=== PATIENT | female | born 1960 | race Two or more races ===

== ENCOUNTER → 2017-05-20 | Outpatient (CLI) | payer OTHER ==
[~2017-05-20] MED LIST: ATOR40TA68 PO; LOSA100T47 PO; LOSA1TAB9 PO; MECL25TA2 PO; METO25TA7 PO; PRAV20TA63 PO
--- NOTE | 2017-05-20 14:12 | RADRPT ---
PROCEDURE: XR Right hip and pelvis. CLINICAL INDICATION: Right hip pain and pelvic pain. TECHNIQUE: 3 views. Frontal pelvis. Frontal and lateral right hip. COMPARISON: None. FINDINGS: There is no fracture or dislocation. The soft tissues are normal. There are degenerative changes of the right hip with joint space narrowing, osteophytes, subarticula r sclerosis, subarticular cysts, and deformity. There is a left hip total arthroplasty. A single s crews transfixing the superior lateral left acetabulum. There is no lytic or blastic lesion. There are degenerative changes of the lower lumbar spine. IMPRESSION: 1. Severe degenerative changes of the right. 2. Left hip total arthroplasty. RPTAT: QQ .Torres Reza MD, MD Date Time Electronically viewed and signed by .Torres Reza MD, on 05/20/2017 14:11 .R/
== END | disposition home or self-care (01) ==
LOC: HKI 08:52
PROVIDERS: ATTEND Orthopaedic Surgery
DX: M16.11 Unilateral primary osteoarthritis, right hip (principal); Z96.642 Presence of left artificial hip joint; M51.36 Other intervertebral disc degeneration, lumbar region; I10 Essential (primary) hypertension; E78.00 Pure hypercholesterolemia, unspecified; Z90.710 Acquired absence of both cervix and uterus
CPT/HCPCS: 73502

== ENCOUNTER → 2017-07-01 | Outpatient (CLI) | payer OTHER ==
[~2017-07-01] MED LIST changes: +ASPI81TA3 PO; +MELO-110 PO
== END | disposition home or self-care (01) ==
LOC: HKI 10:28
PROVIDERS: ATTEND Orthopaedic Surgery
DX: M25.551 Pain in right hip (principal); M16.11 Unilateral primary osteoarthritis, right hip; Z96.642 Presence of left artificial hip joint
CPT/HCPCS: G0463

== ENCOUNTER 2017-07-07 05:36 | Inpatient (IN) | payer OTHER ==
[2017-07-07] VITALS (22 sets, daily range): BP systolic 107–146; BP diastolic 66–87; PULSE 77–92; RESP 14–63; Ht 154.9 cm; Wt 83.5 kg
[~2017-07-07] VITALS: Ht 154.9 cm; Wt 83.5 kg
[~2017-07-07 05:36] MED LIST changes: -ASPI81TA3 PO; -MELO-110 PO
[2017-07-07] MEDS: LACTATED RINGER'S 1,000 ML IV SCH ×4 (06:13→18:08)
[2017-07-07] MEDS ORDERED: BACITRACIN 50000 UNITS INJ ONE (06:41)
[2017-07-07] MEDS ORDERED: PREGABALIN 300 MG PO X1 PO ONE (07:00)
[2017-07-07] MEDS ORDERED: TRANEXAMIC ACID 820 MG in SOD CHLORIDE 0.9% 100 ML IVPB ONE (07:00)
[2017-07-07] MEDS ORDERED: TRANEXAMIC ACID IV ONE (07:00)
[2017-07-07] MEDS ORDERED: oxyCODONE (CR) 10 MG TAB [oxyCONTIN] X1 DOSE PO ONE (07:00)
[2017-07-07] MEDS ORDERED: BUPIVACAINE LIPOSOME/PF 266 MG/20 ML VIAL INFIL ONE (07:00)
[2017-07-07] MEDS ORDERED: CELECOXIB 400 MG PO X1 DOSE PO ONE (07:00)
[2017-07-07] MEDS ORDERED: PAIN COCKTAIL-CEFUROXIME IRR ONE ×7 (07:00)
[2017-07-07] MEDS ORDERED: CEFAZOLIN 2GM/50 ML (PMX) 50 ML X1 BEFORE INCISION IVPB ONE (07:00)
[2017-07-07] MEDS ORDERED: traMADOL 50 MG TAB X 1 DOSE PO ONE (07:00)
[2017-07-07] MEDS ORDERED: ON CALL TO OR IV ONE (07:00)
[2017-07-07] MEDS ORDERED: ONDANSETRON 4 MG IV X 1 DOSE IV ONE (07:00)
[2017-07-07] MEDS ORDERED: VANCOMYCIN 1 GM INJ ONE (07:04)
[2017-07-07] MEDS ORDERED: HEPARIN 1000 UNITS/ML 10 ML INJ ONE (07:04)
[2017-07-07] MEDS ORDERED: POLYMYXIN B 500000 UNIT INJ ONE (07:04)
[2017-07-07] MEDS ORDERED: SODIUM CL BACTERIOSTATIC 30 ML INJ ONE (07:04)
[2017-07-07] MEDS ORDERED: GLYCOPYRROLATE 0.4 MG INJ ONE (07:07)
[2017-07-07] MEDS ORDERED: NEOSTIGMINE 3 MG/3 ML SYRINGE ONE (07:07)
[2017-07-07] MEDS ORDERED: ROCURONIUM 50 MG INJ ONE (07:07)
[2017-07-07] MEDS ORDERED: MIDAZOLAM 1 MG/ML 2 ML INJ ONE (07:07)
[2017-07-07] MEDS ORDERED: FENTAnyl 50 MCG/ML VIAL ONE (07:07)
[2017-07-07] MEDS ORDERED: PROPOFOL 20 ML ONE (07:07)
[2017-07-07] MEDS ORDERED: ONDANSETRON 4 MG INJ ONE (07:07)
[2017-07-07] MEDS ORDERED: CEFAZOLIN 1 GM INJ ONE (07:07)
[2017-07-07] MEDS ORDERED: MELO-110 PO (07:08)
[2017-07-07] MEDS ORDERED: ASPI81TA3 PO (07:08)
[2017-07-07] MEDS ORDERED: DEXAMETHASONE 4 MG/ML 1 ML INJ ONE (07:08)
--- NOTE | 2017-07-07 07:18 | HPN ---
Date/Time of Note Date/Time of Note DATE: 07/07/17 TIME: 07:16 Interval H&P Admission Note Pt. seen H&P reviewed: No system changes No changes from H&P on 06/24/17 by SENTHIL Meyers MD Jul 07, 2017 07:17
[2017-07-07] MEDS ORDERED: PROPOFOL 100 ML ONE (08:11)
[2017-07-07] MEDS ORDERED: ETOMIDATE 20 MG INJ ONE (08:11)
[2017-07-07] MEDS ORDERED: MEPERIDINE 25 MG INJ IV PRN (08:30)
[2017-07-07] MEDS ORDERED: TRIMETHOBENZAMIDE 100 MG/ML VIAL IM PRN (08:30)
[2017-07-07] MEDS ORDERED: HYDROmorphONE (0.2 MG/ML) 10ML SYG IV PRN ×3 (08:30)
[2017-07-07] MEDS ORDERED: IPRATROPIUM (NEB) 0.5 MG/2.5 ML AMP HHN PRN (08:30)
[2017-07-07] MEDS ORDERED: DIPHENHYDRAMINE 50 MG INJ IV PRN (08:30)
[2017-07-07] MEDS ORDERED: hydrALAzine 20 MG INJ IV PRN (08:30)
[2017-07-07] MEDS ORDERED: OXYCODONE/ACETAMINOPHEN (5/325) TAB PO PRN ×2 (08:30)
[2017-07-07] MEDS ORDERED: MIDAZOLAM 1 MG/ML 2 ML INJ IV PRN (08:30)
[2017-07-07] MEDS ORDERED: LABETALOL HCL 20MG INJ IV PRN (08:30)
[2017-07-07] MEDS ORDERED: FENTAnyl 50 MCG/ML VIAL IV PRN ×3 (08:30)
[2017-07-07] MEDS ORDERED: EPHEDrine SULFATE 50 MG/5 ML SYG IV PRN (08:30)
[2017-07-07] MEDS ORDERED: ONDANSETRON 4 MG INJ IV PRN ×2 (08:30→10:30)
[2017-07-07] MEDS ORDERED: ALBUTEROL 0.083% (NEB) 2.5 MG/3 ML AMP HHN PRN (08:30)
[2017-07-07] MEDS ORDERED: EXPAREL NOTE (BUPIVICAINE LIPOSOMAL) XX SCH (09:00)
[2017-07-07] MEDS ORDERED: SUGAMMADEX SODIUM 200 MG/2 ML VIAL IV ONE (09:57)
--- NOTE | 2017-07-07 10:29 | PN ---
Date/Time of Note Date/Time of Note DATE: 07/07/17 TIME: 10:27 Assessment/Plan Lines/Catheters IV Catheter Type (from Nrsg): Peripheral IV Assessment/Plan Assessment/Plan Stable in PACU, s/p right anterior RAJIV -continue Ancef -pain meds as needed -ASA/SCDs -OOB with PT -check AM labs -monitor drain -d/c de leon in AM XR of the right hip is pending at this time Subjective 24 Hr Interval Summary Stable in PACU. Denies pain. Moving all extremities. Exam/Review of Systems Vital Signs Vitals Vital Signs Date Time Temp Pulse Resp B/P Pulse Ox O2 Delivery O2 Flow Rate FiO2 07/07/17 10:12 97.9 90 14 123/72 100 Nasal Cannula 2.0 Exam Free Text/Dictation Hemovac: minimal Dressing dry Incision clean, dry, and intact without redness or drainage Thigh soft 5/5 Quadriceps, Tibialis Anterior, EHL, Gastroc, Soleus, Peroneals Normal sensation Palpable DT/PT, CR <2 sec No distal edema RAJANI NEWBY PA-C Jul 07, 2017 10:29
[2017-07-07] MEDS ORDERED: NA PHOSPHATE/BIPHOS 133 ML ENEMA PR PRN (10:30)
[2017-07-07] MEDS ORDERED: NACL 0.9% 3 ML SYG IV SCH (10:30)
[2017-07-07] MEDS ORDERED: HYDROCODONE/APAP (5/325) TAB PO PRN (10:30)
[2017-07-07] MEDS ORDERED: MAGNESIUM HYDROXIDE 30ML CUP PO PRN (10:30)
[2017-07-07] MEDS ORDERED: BISACODYL 10 MG SUPP PR PRN (10:30)
[2017-07-07] MEDS ORDERED: HYDROmorphONE 1 MG/ML SYG IV PRN (10:30)
[2017-07-07] MEDS ORDERED: DIPHENHYDRAMINE 25 MG CAP PO PRN (10:30)
[2017-07-07] MEDS ORDERED: ASPIRIN (EC) 325 MG TAB PO ONE (10:30)
--- NOTE | 2017-07-07 10:34 | OPR ---
Date/Time of Note Date/Time of Note DATE: 07/07/17 TIME: 10:31 Operative Report Procedure Description DATE: 07/07/2017 PREOPERATIVE DIAGNOSIS: Right hip osteoarthritis POSTOPERATIVE DIAGNOSIS: Right hip osteoarthritis OPERATION PERFORMED: Right anterior total hip arthroplasty SURGEON: Senthil Escalona MD EDUCATIONAL SPEECH LANGUAGE CLINICIAN: Mata Prather PA-C COMPONENTS USED: DePuy size 48 mm Gription [place] cup, one 6.5 millimeter screw, 48/32 neutral Altrex polyethylene liner, size 3 standard Actis stem, 32+ 1 ceramic head ANESTHESIA: Spinal plus general endotracheal intubation. ANESTHESIOLOGIST: Kavin Mallory M.D. ESTIMATED BLOOD LOSS: 400 cc INTRAVENOUS FLUIDS: Crystalloid 3000 cc crystalloid and 150 cc of autologous Cell Saver blood. SPECIMENS: Femoral head. DRAINS: Hemovac 1 COMPLICATIONS: None. DISPOSITION: The patient tolerated the procedure well and was taken to the recovery room in stable condition. INDICATIONS: The patient is a 56-year-old woman who has had progressively worsening pain in the right hip with radiographic evidence of severe osteoarthritis. She has failed nonsurgical means of treatment to address her pain including activity modifications, pain medications, and ambulatory assist devices. I felt the patient would benefit from a total hip arthroplasty through an anterior approach. The risks, benefits, and alternatives of the procedure were explained in detail to the patient. I explained the risks of the surgery to include, but not be limited to: bleeding and possible need for blood transfusion; infection; pain; stiffness; neurovascular injury with possible numbness, weakness, and/or paralysis anywhere from the hip down to the toes; fracture; instability; dislocation; leg length inequality; wear and/or loosening of the prosthesis and possible need for future revision; blood clots; pulmonary embolism; and anesthetic complications such as heart attack, stroke, GI bleed, pneumonia, and/ or . Ample time was allowed for the patient to ask questions, all of which were addressed and answered. The patient understood the risks involved and wished to proceed. Informed consent was signed prior to the procedure. PROCEDURE: The patient's right hip was initialed with a marking pen in the preoperative area to identify the correct operative site. The patient was brought to the operating room and transferred from the [facility] to the [facility] where a spinal anesthetic was administered. The patient was then anesthetized and intubated. A Murphy catheter was placed. Both feet were placed into well padded boots which were then placed into the leg holders of the traction booms. A timeout was performed to confirm that the right side was the correct operative site. The patient was given 2 g of intravenous Ancef within one hour prior to the procedure. The operative hip was prepped and draped in the usual sterile fashion. A 10 cm oblique incision was made over the anterior aspect of the hip and carried down through subcutaneous tissue and fat with sharp dissection. The tensor fascia laurel was incised along the length of the wound. The tensor fascia muscle was retracted laterally and the sartorius medially. The anterior circumflex vessels were identified and tied off with 2-0 silk suture and coagulated with the Tissue Link auto emissions technician. The rectus femoris was elevated off the anterior capsule and an anterior capsulectomy performed. A femoral neck osteotomy was made and the head removed from the acetabulum. The acetabulum was denuded of cartilage circumferentially, as was the femoral head. Retractors were placed around the acetabulum. The remnants of the labrum and ligamentum teres were excised. I reamed the acetabulum to the medial wall and then went into an anatomic position and increased the reamer size in 2 mm increments until I got a good bite and was down to bleeding subchondral bone. The [place] cup was opened and impacted into the acetabulum and sat flush circumferentially, getting a good bite. C-arm imaging showed it had about 40 to 45 degrees of abduction and 20 degrees of anteversion. A single 6.5 screw was drilled and filled to appropriate length, getting a good bite. The real liner was opened and impacted into the acetabulum and sat flush circumferentially. Attention was turned towards the femur. The operative leg was carefully lowered to the floor with the leg adducted. The foot was then externally rotated to approximately 110 degrees. A posteromedial release was performed to optimize exposure. The femoral hook was placed underneath the proximal femur and the hydraulic lift was then used to elevate the femur up out of the wound. The yohana cutter osteotome was used to remove the remaining overhanging greater trochanter. The femur was then broached, going up in one size increments until it sat flush with the neck cut and a stable fit was achieved. The trial neck and head were assembled and reduced into the acetabulum. Fluoroscopic imaging showed the components to be in good position and the leg lengths and offsets to be equal. At this point, the trial was dislocated and the trial broach removed. The canal was irrigated and dried. The real stem was opened and impacted into the femur. The trunnion was irrigated and dried, and the real femoral head was impacted onto the trunnion, and reduced into the acetabulum. The soft tissues were infiltrated with a mixture of 150 mg of 0.5% Bupivacaine, 8 mg of Duramorph, 300 mcg of epinephrine, 30 mg of Toradol, 100 mcg of clonidine, 750 mg of cefuroxime and 86 mL of normal saline, followed by an injection of 266 mg of liposomal Bupivacaine. At this point the hip was irrigated with a mixture of betadine/saline and then antibiotic saline with pulsatile lavage. A Hemovac drain was placed in the deep portion of the wound and brought out the anterolateral thigh. There was good hemostasis. The tensor fascia laurel was repaired with a running #1 Vicryl. The deep fat layer was irrigated and closed with 2-0 Stratafix and the subcutaneous layer closed with 3 -0 Vicryl and the skin was closed with vlad and then sealed with Dermabond. The drain was secured with 3-0 nylon. The sponge and needle counts were correct at the end of the case. The wound was covered with an occlusive dressing. The patient was awakened, extubated, and taken to the recovery room in stable condition. SENTHIL ESCALONA MD Jul 07, 2017 10:34
[2017-07-07] MEDS: CEFAZOLIN 2 GM/50 ML (PMX) 50 ML IVPB SCH ×2 (10:35→18:08)
--- NOTE | 2017-07-07 10:42 | RADRPT ---
PROCEDURE: X-ray fluoroscopy guidance CLINICAL INDICATION: RT ANT. HIP REPL. RM 7 O.R. TECHNIQUE: Fluoroscopic guidance was utilized for intraoperative procedure. COMPARISON: None. FINDINGS: Fluoroscopic guidance was utilized for intraoperative procedure. 1.4 minutes of fluoroscopy time wa s utilized for the procedure. 14 x-ray images were obtained during the procedure. There has been placement of a right total hip prosthesis in near anatomic alignment. A total left hip prosthesis in near anatomic alignment is also noted. IMPRESSION: X-ray fluoroscopic guidance utilized for intraoperative procedure. Placement of a total right hip prosthesis in near anatomic alignment. Please see procedure note details. RPTAT: EE Physician Manpreet Date Time Electronically viewed and signed by Physician Manpreet on 07/07/2017 10:41 /
[2017-07-07 10:55] LABS: HEMATOCRIT 35.7 % (37.0-47.0); HEMOGLOBIN 12.1 g/dl (12.0-16.0)
--- NOTE | 2017-07-07 11:10 | RADRPT ---
PROCEDURE: XR Hip. CLINICAL INDICATION: Status post right hip prosthesis. Postop. Follow-up TECHNIQUE: Single AP view of the right hip was performed. COMPARISON: None. FINDINGS: Right hip prosthesis is identified. Alignment is anatomic. No fracture or loosening or hardware fa ilure is seen. Postsurgical changes are identified. Gas is seen within the joint space and surroun ding soft tissues, as expected. Overlapping soft tissue skin vlad are identified. There is a ranjeet gical drain in place within the soft tissues of the surgical bed as well. IMPRESSION: 1. Satisfactory postop appearances, status post right hip prosthesis placement, in anatomic alignme nt. RPTAT: PP .Boogie Truong MD, Date Time Electronically viewed and signed by .Boogie Truong MD, on 07/07/2017 11:10 .B/
[2017-07-07 11:27] LABS: CALCIUM 8.8 mg/dl (8.4-10.2); CREATININE 0.49 mg/dl (0.44-1.00)
[2017-07-07] MEDS: traMADol 50 MG TAB PO SCH ×2 (11:59→18:00)
--- NOTE | 2017-07-07 12:11 | RADRPT ---
PROCEDURE: Pelvis x-ray CLINICAL INDICATION: Postoperative TECHNIQUE: Single AP view of the pelvis performed. COMPARISON: None FINDINGS: Normal mineralization, architecture and alignment. No fracture or osseous lesion identified. There is a total left hip prosthesis in near anatomic alignment without evidence of hardware looseni ng. There is a total right hip prosthesis in near anatomic alignment without evidence of hardware loosen ing. Likely postoperative changes are noted including surrounding subcutaneous emphysema, overlying skin vlad, and a surgical drain. RPTAT: AA IMPRESSION: Right hip prosthesis in near anatomic alignment with likely postoperative changes. Left hip prosthesis in near anatomic alignment. Physician Manpreet Date Time Electronically viewed and signed by Physician Manpreet on 07/07/2017 12:11 /
[2017-07-07] MEDS ORDERED: TRANEXAMIC ACID 840 MG in SOD CHLORIDE 0.9% 100 ML IVPB ONE ×2 (13:30→16:30)
[2017-07-07] MEDS: PANTOPRAZOLE (EC) 40 MG TAB PO SCH (18:08)
--- NOTE | 2017-07-07 18:37 | CONS ---
Date/Time of Note Date/Time of Note DATE: 07/07/17 TIME: 18:33 Assessment/Plan Assessment/Plan Chief Complaint/Hosp Course 1. Osteoarthritis of the right hip status post total hip replacement postop day 0 Pain control Further management per orthopedics 2. Hypertension Resume home meds 3. Obesity Advise lifestyle changes Prophylaxis: Aspirin Problems: Consultation Date/Type/Reason Admit Date/Time Jul 07, 2017 at 05:36 Type of Consultation: Medicine Hx of Present Illness Patient is a 48-year-old female with history of obesity, hypertension and bilateral hip arthritis status post left-sided hip replacement many years ago and now comes in with elective right hip replacement. Patient has no complaints at this time and is currently comfortable. Constitutional: improved, no complaints Eyes: no complaints ENT: no complaints Respiratory: no complaints Cardiovascular: no complaints Gastrointestinal: no complaints Genitourinary: no complaints Musculoskeletal: no complaints Skin: no complaints Neurologic: no complaints Endocrine: no complaints Lymphatic: no complaints Psychological: nl mood/affect, no complaints Immunologic: no complaints Past Medical History Obesity, hypertension, osteoarthritis Past Surgical History Hysterectomy and bilateral hip replacement Family History Significant Family History: no pertinent family hx Social History Alcohol Use: none Smoking Status: Never smoker Drug Use: none Exam/Review of Systems Vital Signs Vitals Vital Signs Date Time Temp Pulse Resp B/P Pulse Ox O2 Delivery O2 Flow Rate FiO2 07/07/17 15:30 92 145/81 96 Nasal Cannula 1.0 07/07/17 11:45 97.7 07/07/17 11:12 17 Exam Constitutional: alert, oriented Head: normocephalic Respiratory: clear to auscultation Cardiovascular: regular rate and rhythm Gastrointestinal: soft, No distended Musculoskeletal: nl extremities to inspection Results Result Diagram: 07/07/17 1050 07/07/17 1050 Results 24 hrs Laboratory Tests Test 07/07/17 10:50 Hemoglobin 12.1 Hematocrit 35.7 L Sodium Level 144 Potassium Level 4.0 Chloride Level 104 Carbon Dioxide Level 26 Anion Gap 18 H Blood Urea Nitrogen 12 Creatinine 0.49 Glucose Level 173 Calcium Level 8.8 Medications Medications Current Medications Lactated Ringer's (Lr) 1,000 ml @ 100 mls/hr Q10H IV Last administered on 07/07t 16:53; Admin Dose 100 MLS/HR; Start 07/07/17 at 07:00 Miscellaneous Information 1 ea NOTE XX ; Start 07/07/17 at 09:00; Stop 07/11/17 at 08:59 Atorvastatin Calcium (Lipitor) 40 mg QHS PO ; Start 07/07/17 at 21:00 Losartan Potassium (Cozaar) 100 mg DAILY PO ; Start 07/08/17 at 09:00 Metoprolol Succinate (Toprol Xl) 25 mg BID PO ; Start 07/07/17 at 21:00 Hydrochlorothiazide 12.5 mg 12.5 mg DAILY PO ; Start 07/08/17 at 09:00 Lactated Ringer's (Lr) 1,000 ml @ 125 mls/hr Q8H IV ; Start 07/07/17 at 10:09 Tramadol HCl (Ultram) 50 mg Q6 PO ; Start 07/07/17 at 12:00; Stop 07/10/17 at 11 :59 Acetaminophen/ Hydrocodone Bitart ([place] (5/325)) 1 tab Q4H PRN PO PAIN LEVEL 1 -3; Start 07/07/17 at 10:30 Acetaminophen/ Hydrocodone Bitart ([place] (5/325)) 2 tab Q4H PRN PO PAIN LEVEL 4 -7; Start 07/07/17 at 10:30 Hydromorphone HCl 1 mg 1 mg Q3H PRN IV PAIN LEVEL 8-10; Start 07/07/17 at 10:30 Cefazolin Sodium/ Dextrose (Ancef 2 Gm/50 ml (Pmx)) 50 ml @ 100 mls/hr Q8H IVPB Last administered on 07/07/17t 18:08; Admin Dose 100 MLS/HR; Start at 10:30; Stop 07/08/17 at 02:59 Ondansetron HCl (Zofran Inj) 4 mg Q6H PRN IV NAUSEA AND/OR VOMITING; Start at 10:30 Bisacodyl (Dulcolax Supp) 10 mg Q12H PRN [place] CONSTIPATION; Start 07/07/17 at 10: 30 Magnesium Hydroxide (Milk Of Mag) 30 ml BID PRN PO CONSTIPATION; Start at 10:30 Sodium Biphosphate/ Sodium Phosphate (Fleet Enema) 133 ml DAILY PRN [place] CONSTIPATION; Start 07/07/17 at 10:30 Docusate Sodium (Colace) 100 mg BID PO ; Start 07/07/17 at 21:00 Diphenhydramine HCl (Benadryl) 25 mg Q6H PRN PO PRURITUS; Start 07/07/17 at 10: 30 Aspirin (Ecotrin) 325 mg BID PO ; Start 07/08/17 at 09:00 Pantoprazole (Protonix Tab) 40 mg BID@06,18 PO Last administered on 07/07/17t 18:08; Admin Dose 40 MG; Start 07/07/17 at 18:00 CHANDAN ZAMORA Jul 07, 2017 18:37
[2017-07-07] MEDS: DOCUSATE SODIUM 100 MG CAP PO SCH (21:07)
[2017-07-07] MEDS: ATORVASTATIN 40 MG TAB PO SCH (21:07)
[2017-07-07] MEDS: METOPROLOL (XL) 25 MG TAB PO SCH (21:08)
[2017-07-08] MEDS: traMADol 50 MG TAB PO SCH ×4 (00:28→17:22)
[2017-07-08] MEDS: LACTATED RINGER'S 1,000 ML IV SCH ×7 (02:00→23:00)
[2017-07-08] MEDS: CEFAZOLIN 2 GM/50 ML (PMX) 50 ML IVPB SCH (02:38)
[2017-07-08 02:48] VITALS: BP 108/64; RESP 18
[2017-07-08 05:41] LABS: HEMATOCRIT 30.5 % (37.0-47.0); HEMOGLOBIN 10.5 g/dl (12.0-16.0)
[2017-07-08 05:46] LABS: MAGNESIUM 1.8 mg/dl (1.7-2.5); PHOSPHORUS 3.8 mg/dl (2.5-4.9)
[2017-07-08 05:50] LABS: CALCIUM 8.8 mg/dl (8.4-10.2); CREATININE 0.56 mg/dl (0.44-1.00)
[2017-07-08] MEDS: PANTOPRAZOLE (EC) 40 MG TAB PO SCH ×2 (06:16→17:22)
[2017-07-08 08:00] VITALS: BP 108/61; RESP 16
[2017-07-08] MEDS: LOSARTAN 50 MG TAB PO SCH (08:22)
[2017-07-08] MEDS: DOCUSATE SODIUM 100 MG CAP PO SCH ×2 (08:22→20:42)
[2017-07-08] MEDS: ASPIRIN (EC) 325 MG TAB PO SCH ×2 (08:22→18:27)
[2017-07-08] MEDS: METOPROLOL (XL) 25 MG TAB PO SCH ×2 (08:23→20:43)
[2017-07-08] MEDS: HYDROCHLOROTHIAZIDE 12.5 MG CAP PO SCH (08:23)
--- NOTE | 2017-07-08 08:51 | PN ---
Date/Time of Note Date/Time of Note DATE: 07/08/17 TIME: 08:49 Assessment/Plan Lines/Catheters IV Catheter Type (from Nrsg): Peripheral IV Murphy in Place (from Nrsg): Yes Assessment/Plan Assessment/Plan Stable POD #1, s/p right anterior RAJIV -d/c Ancef -pain meds as needed -ASA/SCDs -OOB with PT -check AM labs -drain removed -d/c planning home Subjective 24 Hr Interval Summary No acute overnight events. Denies pain. Began PT yesterday. VSS, afebrile. Will plan to go home upon discharge. Exam/Review of Systems Vital Signs Vitals Vital Signs Date Time Temp Pulse Resp B/P Pulse Ox O2 Delivery O2 Flow Rate FiO2 07/08/17 08:00 98.5 86 16 108/61 94 07/07/17 20:00 Nasal Cannula 2.0 Intake and Output 07/07/17 07/07/17 07/08/17 15:00 23:00 07:00 Intake Total 3233.4 ml 1658.4 ml 472 ml Output Total 1430 ml 1420 ml 2700 ml Balance 1803.4 ml 238.4 ml -2228 ml Exam Free Text/Dictation Hemovac: 150cc Dressing dry Incision clean, dry, and intact without redness or drainage 5/5 Quadriceps, Tibialis Anterior, EHL, Gastroc, Soleus, Peroneals Normal sensation Palpable DT/PT, CR <2 sec No distal edema Results Result Diagram: 07/08/17 0503 07/08/17 0503 RAJANI NEWBY PA-C Jul 08, 2017 08:51
[2017-07-08] MEDS: HYDROCODONE/APAP (5/325) TAB PO PRN (09:12)
[2017-07-08 10:45] LABS: ADD UMIC NO; UR ASCORBIC ACID NEGATIVE (NEGATIVE); UR BILIRUBIN (Dip) NEGATIVE (NEGATIVE); UR BLOOD (Dip) NEGATIVE (NEGATIVE); UR CLARITY CLEAR (CLEAR); UR COLOR COLORLESS (YELLOW); UR GLUCOSE (Dip) NEGATIVE (NEGATIVE); UR KETONES (Dip) NEGATIVE (NEGATIVE); UR LEUKOCYTE ESTERASE (Dip) NEGATIVE Leu/ul (NEGATIVE); UR NITRITE (Dip) NEGATIVE (NEGATIVE); UR SPECIFIC GRAVITY (Dip) 1.002 (1.003-1.030); UR TOTAL PROTEIN (Dip) NEGATIVE (NEGATIVE); UR UROBILINOGEN (Dip) NEGATIVE (NEGATIVE)
[2017-07-08 14:00] VITALS: BP 113/66; RESP 18
--- NOTE | 2017-07-08 19:19 | PN ---
Date/Time of Note Date/Time of Note DATE: 07/08/17 TIME: 19:18 Assessment/Plan VTE Prophylaxis VTE Prophylaxis Intervention: other (Aspirin) Lines/Catheters IV Catheter Type (from Nrsg): Peripheral IV Assessment/Plan Chief Complaint/Hosp Course 1. Osteoarthritis of the right hip status post total hip replacement postop day 1-doing well Pain control Further management per orthopedics 2. Hypertension Resume home meds 3. Obesity Advise lifestyle changes 4. Prediabetes A1c is 6.2, lifestyle changes advised Prophylaxis: Aspirin Problems: Subjective 24 Hr Interval Summary Constitutional: no complaints Exam/Review of Systems Vital Signs Vitals Vital Signs Date Time Temp Pulse Resp B/P Pulse Ox O2 Delivery O2 Flow Rate FiO2 07/08/17 14:00 97.6 76 18 113/66 97 07/08/17 08:00 Nasal Cannula 1.0 Intake and Output 07/07/17 07/07/17 07/08/17 15:00 23:00 07:00 Intake Total 3233.4 ml 1658.4 ml 472 ml Output Total 1430 ml 1420 ml 2700 ml Balance 1803.4 ml 238.4 ml -2228 ml Exam Constitutional: alert, oriented Respiratory: clear to auscultation Cardiovascular: regular rate and rhythm Gastrointestinal: soft, No distended Musculoskeletal: nl extremities to inspection Results Result Diagram: 07/08/17 0503 07/08/17 0503 Results 24 hrs Laboratory Tests Test 07/08/17 05:03 Hemoglobin 10.5 L Hematocrit 30.5 L Sodium Level 137 Potassium Level 4.0 Chloride Level 103 Carbon Dioxide Level 28 Anion Gap 10 # Blood Urea Nitrogen 10 Creatinine 0.56 Glucose Level 108 # Hemoglobin A1c 6.2 H Calcium Level 8.8 Phosphorus Level 3.8 Magnesium Level 1.8 Medications Medications Current Medications Lactated Ringer's (Lr) 1,000 ml @ 100 mls/hr Q10H IV Last administered on 07/07 16:53; Admin Dose 100 MLS/HR; Start 07/07/17 at 07:00 Miscellaneous Information 1 ea NOTE XX ; Start 07/07/17 at 09:00; Stop 07/11/17 at 08:59 Atorvastatin Calcium (Lipitor) 40 mg QHS PO Last administered on 07/07/17 21: 07; Admin Dose 40 MG; Start 07/07/17 at 21:00 Losartan Potassium (Cozaar) 100 mg DAILY PO Last administered on 07/08/17 08: 22; Admin Dose 100 MG; Start 07/08/17 at 09:00 Metoprolol Succinate (Toprol Xl) 25 mg BID PO Last administered on 07/08/17 08 :23; Admin Dose 25 MG; Start 07/07/17 at 21:00 Hydrochlorothiazide 12.5 mg 12.5 mg DAILY PO Last administered on 07/08/17 08: 23; Admin Dose 12.5 MG; Start 07/08/17 at 09:00 Lactated Ringer's (Lr) 1,000 ml @ 125 mls/hr Q8H IV Last administered on 02:00; Admin Dose 125 MLS/HR; Start 07/07/17 at 10:09 Tramadol HCl (Ultram) 50 mg Q6 PO Last administered on 07/08/17 17:22; Admin Dose 50 MG; Start 07/07/17 at 12:00; Stop 07/10/17 at 11:59 Acetaminophen/ Hydrocodone Bitart ([place] (5/325)) 1 tab Q4H PRN PO PAIN LEVEL 1 -3 Last administered on 07/08/17 09:12; Admin Dose 1 TAB; Start 07/07/17 at 10: 30 Acetaminophen/ Hydrocodone Bitart ([place] (5/325)) 2 tab Q4H PRN PO PAIN LEVEL 4 -7; Start 07/07/17 at 10:30 Hydromorphone HCl (Dilaudid) 1 mg Q3H PRN IV PAIN LEVEL 8-10; Start 07/07/17 at 10:30 Ondansetron HCl (Zofran Inj) 4 mg Q6H PRN IV NAUSEA AND/OR VOMITING Last administered on 07/07/17 19:26; Admin Dose 4 MG; Start 07/07/17 at 10:30 Bisacodyl (Dulcolax Supp) 10 mg Q12H PRN [place] CONSTIPATION; Start 07/07/17 at 10: 30 Magnesium Hydroxide (Milk Of Mag) 30 ml BID PRN PO CONSTIPATION; Start at 10:30 Sodium Biphosphate/ Sodium Phosphate (Fleet Enema) 133 ml DAILY PRN [place] CONSTIPATION; Start 07/07/17 at 10:30 Docusate Sodium (Colace) 100 mg BID PO Last administered on 07/08/17 08:22; Admin Dose 100 MG; Start 07/07/17 at 21:00 Diphenhydramine HCl (Benadryl) 25 mg Q6H PRN PO PRURITUS; Start 07/07/17 at 10: 30 Aspirin (Ecotrin) 325 mg BID PO Last administered on 07/08/17 08:22; Admin Dose 325 MG; Start 07/08/17 at 09:00 Pantoprazole (Protonix Tab) 40 mg BID@06,18 PO Last administered on 07/08/17 17:22; Admin Dose 40 MG; Start 07/07/17 at 18:00 CHANDAN ZAMORA Jul 08, 2017 19:19
[2017-07-08] MEDS: ATORVASTATIN 40 MG TAB PO SCH (20:43)
[2017-07-08 20:53] VITALS: BP 107/57; RESP 20
[2017-07-09] MEDS: traMADol 50 MG TAB PO SCH ×3 (00:23→12:59)
[2017-07-09 01:53] VITALS: BP 108/76; RESP 20
[2017-07-09] MEDS: LACTATED RINGER'S 1,000 ML IV SCH ×3 (02:06→10:09)
[2017-07-09 05:22] LABS: HEMATOCRIT 29.9 % (37.0-47.0); HEMOGLOBIN 10.3 g/dl (12.0-16.0)
[2017-07-09 05:34] LABS: CALCIUM 8.2 mg/dl (8.4-10.2); CREATININE 0.56 mg/dl (0.44-1.00)
[2017-07-09] MEDS: PANTOPRAZOLE (EC) 40 MG TAB PO SCH (06:18)
[2017-07-09 08:01] VITALS: BP 129/75; RESP 18
[2017-07-09] MEDS: LOSARTAN 50 MG TAB PO SCH (09:41)
[2017-07-09] MEDS: DOCUSATE SODIUM 100 MG CAP PO SCH (09:41)
[2017-07-09] MEDS: HYDROCHLOROTHIAZIDE 12.5 MG CAP PO SCH (09:41)
[2017-07-09] MEDS: ASPIRIN (EC) 325 MG TAB PO SCH (09:41)
[2017-07-09] MEDS: METOPROLOL (XL) 25 MG TAB PO SCH (09:42)
--- NOTE | 2017-07-09 09:45 | PDOCDIS ---
Discharge Instructions DIAGNOSIS Discharge Diagnosis s/p right anterior RAJIV CONDITION Patient Condition: Good HOME CARE INSTRUCTIONS: Diet Instructions: Regular ACTIVITY: Activity Restrictions: Slowly Increase Activity Rest between Activity Avoid heavy lifting Do not operate Machinery Do not operate Power Tool Avoid Heavy Housework Keep Limb Elevated Weight Bearing Bathing Restrictions: Shower FOLLOW UP/APPOINTMENTS Follow-up Plan follow up in the office on 07/17/17 RAJANI NEWBY PA-C Jul 09, 2017 09:45
[2017-07-09] MEDS ORDERED: HYDR-3498 PO (09:47)
[2017-07-09] MEDS ORDERED: PANT40TA4 PO (09:47)
[2017-07-09] MEDS ORDERED: TRAM50TA2 PO (09:47)
[2017-07-09] MEDS ORDERED: ASPI325T32 PO (09:47)
--- NOTE | 2017-07-09 10:41 | PN ---
Date/Time of Note Date/Time of Note DATE: 07/09/17 TIME: 10:39 Assessment/Plan Lines/Catheters IV Catheter Type (from Nrsg): Saline Lock Assessment/Plan Assessment/Plan Stable POD #2, s/p right anterior RAJIV -pain meds as needed -ASA/SCDs -OOB with PT -dressing changed -d/c home today -follow up in the office in 1 week Subjective 24 Hr Interval Summary Doing well overnight. No acute events. Progressing with PT. VSS,afebrile. Would like to go home today. Exam/Review of Systems Vital Signs Vitals Vital Signs Date Time Temp Pulse Resp B/P Pulse Ox O2 Delivery O2 Flow Rate FiO2 07/09/17 08:01 98.5 79 18 129/75 90 07/08/17 08:00 Nasal Cannula 1.0 Intake and Output 07/08/17 07/08/17 07/09/17 15:00 23:00 07:00 Intake Total 100 ml 700 ml 960 ml Output Total 1200 ml Balance 100 ml -500 ml 960 ml Exam Free Text/Dictation Dressing dry Incision clean, dry, and intact without redness or drainage 5/5 Quadriceps, Tibialis Anterior, EHL, Gastroc, Soleus, Peroneals Normal sensation Palpable DT/PT, CR <2 sec No distal edema Results Result Diagram: 07/09/17 0455 07/09/17 0455 RAJANI NEWBY PA-C Jul 09, 2017 10:40
[2017-07-09] MEDS: HYDROCODONE/APAP (5/325) TAB PO PRN ×2 (11:21→16:48)
--- NOTE | 2017-07-09 13:05 | DS ---
Date/Time of Note Date/Time of Note DATE: 07/09/17 TIME: 13:02 Discharge Summary Admission/Discharge Info Admit Date/Time Jul 07, 2017 at 05:36 Discharge Date/Time 07/09/2017 Discharge Diagnosis s/p right anterior RAJIV Patient Condition: Good Procedures Right anterior total hip arthroplasty Hospital Course This is a 48-year-old female, who was seen in the clinic complaining of right hip pain. X-rays demonstrated advanced osteoarthritis of the right hip, and is thought she would benefit from right anterior total hip arthroplasty. On 2016, the patient was admitted and taken to the operating room, where she underwent a right anterior total hip arthroplasty. There were no intraoperative complications. The patient tolerated procedure well. She was taken to recovery room in stable condition. Pain was well-controlled oral pain medication. She was started on aspirin and SCDs for DVT prophylaxis. She remained hemodynamically stable and neurovascularly intact throughout her hospital stay. She began physical therapy on postoperative day 0, continued to make good progress. Ultimately she was deemed stable for discharge home on postoperative day 2. Prior to discharge, an incision was inspected and noted be clean, dry, and intact. Dressing changes were done prior to patient going home. DISCHARGE INSTRUCTIONS: Patient was discharged home in stable condition. She is to resume a normal diet. She is weightbearing as tolerated on the right lower extremity. She will begin physical therapy with home health. She discharged home with the medication noted, and is to resume all of her normal home medication. Patient is to call the office or go to emergency room including increased redness, swelling, drainage, fever, or any concerns regarding the operation or site of incision. Home Meds Active Scripts Hydrocodone Bit-Acetaminophen (Hydrocodone Bit-APAP) 5-325MG Tablet, 2 TAB PO Q4H Y for PAIN LEVEL 4-7 for 30 Days, #60 TAB Prov:RAJANI NEWBY PA-C 07/09/17 Pantoprazole* (Pantoprazole*) 40 Mg Tablet.dr, 40 MG PO BID@06,18 for 40 Days, # 40 Prov:RAJANI NEWBY PA-C 07/09/17 Tramadol HCl (Tramadol HCl) 50 Mg Tablet, 50 MG PO Q6 for 30 Days, #60 Prov:RAJANI NEWBY PA-C 07/09/17 Aspirin (Aspir-Brittnee) 325 Mg Tablet., 325 MG PO BID for 40 Days, #80 Prov:RAJANI NEWBY PA-C 07/09/17 Metoprolol Succinate* (Toprol XL*) 25 Mg Tab.sr.24h, 25 MG PO BID, #60 TAB Prov:CHANDAN ZAMORA 09/01/16 Atorvastatin* (Atorvastatin*) 40 Mg Tablet, 40 MG PO QHS, #60 TAB Prov:CHANDAN ZAMORA 09/01/16 Losartan Potassium* (Cozaar*) 100 Mg Tablet, 100 MG PO DAILY, #60 TAB Prov:CHANDAN ZAMORA 09/01/16 Reported Medications Losartan/Hydrochlorothiazide (Hyzaar 100-12.5 Tablet) 1 Each Tablet, 1 TAB PO DAILY, TAB 08/30/16 Discontinued Reported Medications Meloxicam* (Mobic*) 15 Mg Tablet, 15 MG PO DAILY, #30 TAB 07/07/17 Aspirin (Aspirin) 81 Mg Chew, 81 MG PO DAILY, TAB.CHEW 07/07/17 Pravastatin Sodium* (Pravastatin Sodium*) 20 Mg Tablet, 20 MG PO HS, TAB 08/30/16 Discontinued Scripts Meclizine Hcl* (Antivert*) 25 Mg Tablet, 25 MG PO TID Y for dizziness, #60 TAB Prov:CHANDAN ZAMORA 09/01/16 Follow-up Plan Follow up in the office on 07/17/17 Primary Care Provider Britta Christie Pending Labs Laboratory Tests Test 07/09/17 04:55 Hemoglobin 10.3g/dl (12.0-16.0) Hematocrit 29.9% (37.0-47.0) Sodium Level 141mmol/L (135-144) Potassium Level 4.0mmol/L (3.5-5.1) Chloride Level 101mmol/L (97-110) Carbon Dioxide Level 30mmol/L (21-31) Anion Gap 14 (8-16) Blood Urea Nitrogen 12mg/dl (7-20) Creatinine 0.56mg/dl (0.44-1.00) Glucose Level 102mg/dl (70-220) Calcium Level 8.2mg/dl (8.4-10.2) RAJANI NEWBY PA-C Jul 09, 2017 13:05
--- NOTE | 2017-07-09 14:28 | PN ---
Date/Time of Note Date/Time of Note DATE: 07/09/17 TIME: 14:27 Assessment/Plan VTE Prophylaxis VTE Prophylaxis Intervention: other Lines/Catheters IV Catheter Type (from Nrs): Saline Lock Assessment/Plan Chief Complaint/Hosp Course 1. Osteoarthritis of the right hip status post total hip replacement postop day 1-doing well Pain control Further management per orthopedics 2. Hypertension-stable Continue home meds 3. Obesity Advise lifestyle changes 4. Prediabetes A1c is 6.2, lifestyle changes advised Prophylaxis: Aspirin DC planning: Likely DC today by orthopedics Problems: Subjective 24 Hr Interval Summary Constitutional: no complaints Exam/Review of Systems Vital Signs Vitals Vital Signs Date Time Temp Pulse Resp B/P Pulse Ox O2 Delivery O2 Flow Rate FiO2 07/09/17 08:01 98.5 79 18 129/75 90 07/08/17 08:00 Nasal Cannula 1.0 Intake and Output 07/08/17 07/08/17 07/09/17 15:00 23:00 07:00 Intake Total 100 ml 700 ml 960 ml Output Total 1200 ml Balance 100 ml -500 ml 960 ml Exam Constitutional: alert, oriented Respiratory: clear to auscultation Cardiovascular: regular rate and rhythm Gastrointestinal: soft, No distended Musculoskeletal: nl extremities to inspection Results Result Diagram: 07/09/17 0455 07/09/17 0455 Results 24 hrs Laboratory Tests Test 07/09/17 04:55 Hemoglobin 10.3 L Hematocrit 29.9 L Sodium Level 141 Potassium Level 4.0 Chloride Level 101 Carbon Dioxide Level 30 Anion Gap 14 Blood Urea Nitrogen 12 Creatinine 0.56 Glucose Level 102 Calcium Level 8.2 L Medications Medications Current Medications Lactated Ringer's (Lr) 1,000 ml @ 100 mls/hr Q10H IV Last administered on 07/07 16:53; Admin Dose 100 MLS/HR; Start 07/07/17 at 07:00 Miscellaneous Information 1 ea NOTE XX ; Start 07/07/17 at 09:00; Stop 07/11/17 at 08:59 Atorvastatin Calcium (Lipitor) 40 mg QHS PO Last administered on 07/08/17 20: 43; Admin Dose 40 MG; Start 07/07/17 at 21:00 Losartan Potassium (Cozaar) 100 mg DAILY PO Last administered on 07/09/17 09: 41; Admin Dose 100 MG; Start 07/08/17 at 09:00 Metoprolol Succinate (Toprol Xl) 25 mg BID PO Last administered on 07/09/17 09 :42; Admin Dose 25 MG; Start 07/07/17 at 21:00 Hydrochlorothiazide 12.5 mg 12.5 mg DAILY PO Last administered on 07/09/17 09: 41; Admin Dose 12.5 MG; Start 07/08/17 at 09:00 Lactated Ringer's (Lr) 1,000 ml @ 125 mls/hr Q8H IV Last administered on 02:00; Admin Dose 125 MLS/HR; Start 07/07/17 at 10:09 Tramadol HCl (Ultram) 50 mg Q6 PO Last administered on 07/09/17 12:59; Admin Dose 50 MG; Start 07/07/17 at 12:00; Stop 07/10/17 at 11:59 Acetaminophen/ Hydrocodone Bitart ([place] (5/325)) 1 tab Q4H PRN PO PAIN LEVEL 1 -3 Last administered on 07/09/17 11:21; Admin Dose 1 TAB; Start 07/07/17 at 10: 30 Acetaminophen/ Hydrocodone Bitart ([place] (5/325)) 2 tab Q4H PRN PO PAIN LEVEL 4 -7; Start 07/07/17 at 10:30 Hydromorphone HCl (Dilaudid) 1 mg Q3H PRN IV PAIN LEVEL 8-10; Start 07/07/17 at 10:30 Ondansetron HCl (Zofran Inj) 4 mg Q6H PRN IV NAUSEA AND/OR VOMITING Last administered on 07/07/17 19:26; Admin Dose 4 MG; Start 07/07/17 at 10:30 Bisacodyl (Dulcolax Supp) 10 mg Q12H PRN SD CONSTIPATION; Start 07/07/17 at 10: 30 Magnesium Hydroxide (Milk Of Mag) 30 ml BID PRN PO CONSTIPATION; Start at 10:30 Sodium Biphosphate/ Sodium Phosphate (Fleet Enema) 133 ml DAILY PRN SD CONSTIPATION; Start 07/07/17 at 10:30 Docusate Sodium (Colace) 100 mg BID PO Last administered on 07/09/17 09:41; Admin Dose 100 MG; Start 07/07/17 at 21:00 Diphenhydramine HCl (Benadryl) 25 mg Q6H PRN PO PRURITUS; Start 07/07/17 at 10: 30 Aspirin (Ecotrin) 325 mg BID PO Last administered on 07/09/17 09:41; Admin Dose 325 MG; Start 07/08/17 at 09:00 Pantoprazole (Protonix Tab) 40 mg BID@,18 PO Last administered on 07/09/17 06:18; Admin Dose 40 MG; Start 07/07/17 at 18:00 CHANDAN ZAMORA Jul 09, 2017 14:28
[2017-07-09 15:34] VITALS: BP 102/64; RESP 20
== END 2017-07-09 17:38 | disposition home health service (06) | DRG 470 ==
LOC: REC 05:36 → MS1 11:30
PROVIDERS: ADMIT Orthopaedic Surgery; ATTEND Orthopaedic Surgery
PROC: 0SR904A Replacement of Right Hip Joint with Ceramic on Polyethylene Synthetic Substitute, Uncemented, Open Approach (ICD-10-PCS; principal; 2017-07-07 07:00)
DX: M16.11 Unilateral primary osteoarthritis, right hip (principal); E66.9 Obesity, unspecified; I10 Essential (primary) hypertension; Z96.642 Presence of left artificial hip joint; Z68.34 Body mass index [BMI] 34.0-34.9, adult; Z71.3 Dietary counseling and surveillance; Z79.82 Long term (current) use of aspirin
CPT/HCPCS: 72170; 73500; 73530; 80048; 81003; 83036; 83735; 84100; 85014; 85018; 86850; 86900; 86901; 86920; 87081; 87086; 88304; 88311; 97110; 97116; 97162; 97166; 97530; 97535; C1713; C1776; C9290; J0171; J0690; J0697; J0735; J1100; J1644; J1885; J2250; J2274; J2405; J2710; J3010; J3370; J7120

== ENCOUNTER → 2017-07-17 | Outpatient (CLI) | payer OTHER ==
[~2017-07-17] MED LIST changes: +ASPI325T32 PO; +ASPI81TA3 PO; +HYDR-3498 PO; +MELO-110 PO; +PANT40TA4 PO; +TRAM50TA2 PO
--- NOTE | 2017-07-17 10:46 | PN ---
Date/Time of Note Date/Time of Note DATE: 07/17/17 TIME: 10:43 Outpatient Progress Note HPI The patient presents today for her first postoperative evaluation. She is now 10 days status post right anterior total hip arthroplasty. She is doing well overall. She denies any fevers or chills. She is doing physical therapy with home health progressing nicely. Her pain is improving overall. She is taking aspirin twice daily for DVT prophylaxis. She presents today for her first postoperative evaluation. Physical Exam On exam today, she is alert and oriented 4, and in no acute distress. Exam of the incision demonstrates it to be clean, dry, and intact. Pablo are in place. There is no erythema, warmth, pus, or drainage noted. Her leg lengths are equal. There is mild soft tissue swelling. Homans sign is negative. Compartments are soft. She is neurovascularly intact distally. Imaging: X-rays of the right hip were obtained today and reviewed by me. They demonstrate good anatomic alignment with no fractures or dislocations identified Allergies Coded Allergies: No Known Allergy (Unverified , 07/07/17) Family Hx Patient History: Cardiac disorder 33 FATHER ([place] at age of 65 y/o) FH: cancer Assessment/Plan Assessment: 10 days status post right anterior total hip arthroplasty Plan: The pablo were removed today, and Steri-Strips were applied. She is to continue home health physical therapy and transition to using a cane when stable. She is also to continue aspirin twice daily for DVT prophylaxis. We will see her back in 4 weeks for repeat evaluation. The patient to follow-up with Dr. Solorio at [facility]. Medications Home Meds Active Scripts Hydrocodone Bit-Acetaminophen (Hydrocodone Bit-APAP) 5-325MG Tablet, 2 TAB PO Q4H Y for PAIN LEVEL 4-7 for 30 Days, #60 TAB Prov:RAJANI NEWBY PA-C 07/09/17 Pantoprazole* (Pantoprazole*) 40 Mg Tablet., 40 MG PO BID@06,18 for 40 Days, # 40 Prov:RAJANI NEWBY PA-C 07/09/17 Tramadol HCl (Tramadol HCl) 50 Mg Tablet, 50 MG PO Q6 for 30 Days, #60 Prov:RAJANI NEWBY PA-C 07/09/17 Aspirin (Aspir-Brittnee) 325 Mg Tablet.dr, 325 MG PO BID for 40 Days, #80 Prov:RAJANI NEWBY PA-C 07/09/17 Metoprolol Succinate* (Toprol XL*) 25 Mg Tab.sr.24h, 25 MG PO BID, #60 TAB Prov:CHANDAN ZAMORA 09/01/16 Atorvastatin* (Atorvastatin*) 40 Mg Tablet, 40 MG PO QHS, #60 TAB Prov:CHANDAN ZAMORA 09/01/16 Losartan Potassium* (Cozaar*) 100 Mg Tablet, 100 MG PO DAILY, #60 TAB Prov:CHANDAN ZAMORA 09/01/16 Reported Medications Losartan/Hydrochlorothiazide (Hyzaar 100-12.5 Tablet) 1 Each Tablet, 1 TAB PO DAILY, TAB 08/30/16 RAJANI NEWBY PA-C Jul 17, 2017 10:45
--- NOTE | 2017-07-17 16:00 | RADRPT ---
PROCEDURE: XR Right hip and pelvis. CLINICAL INDICATION: Right hip pain. Pelvic pain. Postop. TECHNIQUE: Two views. Frontal pelvis and frontal right hip. COMPARISON: 07/07/2017. FINDINGS: There are bilateral total hip arthroplasties which appears satisfactory. There is no fracture, disl ocation, or loosening. Left lateral skin vlad and surgical drain have been removed. A screw is present superiorly laterally in the left acetabulum Adal The soft tissues are normal. There is no lytic or blastic lesion. There are degenerative changes of the lower lumbar spine. IMPRESSION: 1. Satisfactory postoperative appearance of both hips. 2. Degenerative changes of the lower lumbar spine. RPTAT: QQ .Torres Reza MD, MD Date Time Electronically viewed and signed by .Torres Reza MD, on 07/17/2017 15:59 .R/
== END | disposition home or self-care (01) ==
LOC: HKI 09:46
PROVIDERS: ATTEND Orthopaedic Surgery
DX: Z47.1 Aftercare following joint replacement surgery (principal); Z96.641 Presence of right artificial hip joint
CPT/HCPCS: 73502

== ENCOUNTER → 2018-03-12 | Outpatient (CLI) | END | disposition home or self-care (01) ==

== ENCOUNTER 2019-01-24 08:54 | Day surgery (SDC) | payer OTHER ==
[~2019-01-24] VITALS: Ht 154.9 cm; Wt 83.6 kg
[~2019-01-24 08:54] MED LIST changes: -ASPI81TA3 PO; -HYDR-3498 PO; +HYDR-3601 PO; +LOSA100T3 PO; -LOSA100T47 PO; -MECL25TA2 PO; -MELO-110 PO; +METO-335 PO; -METO25TA7 PO; -PRAV20TA63 PO
[2019-01-24 10:02] VITALS: Ht 154.9 cm; Wt 83.6 kg
[2019-01-24 10:33] VITALS: BP 178/107; PULSE 94; RESP 18
[2019-01-24] MEDS ORDERED: FENTAnyl 50 MCG/ML VIAL ONE (11:23)
[2019-01-24] MEDS ORDERED: MIDAZOLAM 1 MG/ML 2 ML INJ ONE ×2 (11:23)
[2019-01-24 11:43] VITALS: BP 148/94; PULSE 86; RESP 20
== END 2019-01-24 13:11 | disposition home or self-care (01) ==
LOC: GIL 08:54
PROVIDERS: ATTEND Internal Medicine Gastroenterology
DX: Z12.11 Encounter for screening for malignant neoplasm of colon (principal); K64.8 Other hemorrhoids; Z86.010 Personal history of colon polyps
CPT/HCPCS: 45378; J2250; J3010